=== PATIENT | female | born 1970 | race Caucasian/White ===

== ENCOUNTER → 2018-08-12 | Outpatient (CLI) | payer MEDICARE, OTHER ==
--- NOTE | 2018-08-12 18:48 | MR ---
EXAMINATION TYPE: MR brain wo/w con DATE OF EXAM: 08/12/2018 COMPARISON: NONE HISTORY: 47-year-old female BRAIN TUMOR, vertigo TECHNIQUE: Multiplanar, multisequence images of the brain and brainstem were acquired before and aft er administration of 7.5 mL IV Gadavist. Diffusion weighted imaging is performed. FINDINGS: No evidence for acute infarction, hemorrhage, mass, mass effect, midline shift, herniation, effacemen t of basal cisterns, or extra-axial fluid collection. The ventricles and sulci are age-appropriate. Major intracranial flow voids are intact. T2/FLAIR weighted sequences show minimal bright signal in the periventricular regions along the front al horns of the lateral ventricles likely age related change. Midline structures demonstrate normal morphology. The craniocervical junction is normal. Post contrast images demonstrate no evidence of pathologic enhancement. Dural venous sinuses are pat ent. 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 The cerebellopontine a ngles are clear. The visualized sinuses are clear and the globes are intact. IMPRESSION: 1. No acute intracranial abnormality seen. 2. Incidental DVA inferior left cerebellar hemisphere. 3. No evidence for brain tumor. The CP angles are clear.
== END ==
LOC: RADMRIMAIN 12:57
PROVIDERS: ATTEND Psychiatry & Neurology Neurology
DX: C71.9 Malignant neoplasm of brain, unspecified (principal)
CPT/HCPCS: 70553; A9585